=== PATIENT | female | born 1990 | race Caucasian/White ===

== ENCOUNTER 2017-02-03 12:03 | Day surgery (SDC) | payer OTHER ==
[~2017-02-03 12:03] MED LIST: DICLEGIS DR 101 EACH PO; IBUPROFEN600 M1 PO; MIRALAX17 G2 PO; PERCOCET 5-3251 EACH PO; PRENATAL TABLE1 EAC3 PO; PROAIR RESPICL90 MCG PO; TUMS200 MG PO; TYLENOL325 M2 PO; ZOLOFT50 M1 PO
[2017-02-03 12:39] LABS: BASO % 0.3 % (0-2); EOS % 1.3 % (0-7); EOSINOPHIL ABSOLUTE COUNT 0.1 tho/cmm (0.0-0.7); HCT-HEMATOCRIT 44.8 % (34.0-49.0); HGB-HEMOGLOBIN 14.9 gm/dl (12.0-15.5); IMMATURE GRANULOCYTES ABSOLUTE 0.01 tho/cmm (0-0.03); IMMATURE GRANULOCYTES PERCENT 0.2 % (0-0.3); LYMPH % 43.8 % (20-45); LYMPH ABSOLUTE COUNT 2.8 tho/cmm (0.8-4.5); MCH (MEAN CORPUSCULAR HGB) 29.3 pg (28.0-32.0); MCHC MEAN CORPUSCULAR HGB CONC 33.3 % (32.0-36.0); MCV (MEAN CELL VOLUME) 88.2 fl (82.0-96.0); MEAN PLATELET VOLUME 9.9 cmc (9.4-12.4); MONO % 4.4 % (0-12); MONOCYTE ABSOLUTE COUNT 0.3 tho/cmm (0.0-1.2); NEUTROPHIL ABSOLUTE COUNT 3.2 tho/cmm (1.6-8.0); NEUTROPHIL-AUTOMATED 3.2 tho/cmm (1.6-8.0); PLATELET COUNT 242 tho/cmm (150-450); RED BLOOD COUNT 5.08 mil/cmm (4.00-5.20); WHITE BLOOD COUNT 6.4 tho/cmm (4.0-10.0)
[2017-02-03 13:24] LABS: URINE APPEARANCE CLEAR; URINE BILIRUBIN NEGATIVE (NEG); URINE BLOOD NEGATIVE (NEG); URINE COLOR YELLOW; URINE GLUCOSE (UA) NEGATIVE (NEG); URINE KETONE NEGATIVE (NEG); URINE LEUKOCYTE ESTERASE NEGATIVE (NEG); URINE NITRITE NEGATIVE (NEG); URINE PROTEIN NEGATIVE (NEG)
== END 2017-02-03 17:00 ==
LOC: WSU 12:03 → SHSC 12:04 → ORW 13:57 → PACU 14:51 → SHSC 15:30
PROVIDERS: Anesthesiology; Obstetrics & Gynecology
PROC: 10D17ZZ Extraction of Products of Conception, Retained, Via Natural or Artificial Opening (ICD-10-PCS; principal; 2017-02-03)
DX: O03.4 Incomplete spontaneous abortion without complication (principal); F32.9 Major depressive disorder, single episode, unspecified; J45.909 Unspecified asthma, uncomplicated; Z88.0 Allergy status to penicillin; Z88.1 Allergy status to other antibiotic agents; Z87.891 Personal history of nicotine dependence; Z79.899 Other long term (current) drug therapy; Z98.890 Other specified postprocedural states
CPT/HCPCS: J2405; J3010